=== PATIENT | male | born 1985 | race Hispanic/Latino ===

== ENCOUNTER 2021-10-21 14:48 | Emergency (ER) | payer MEDICAID ==
[2021-10-21 14:53] VITALS: BP 121/73
== END 2021-10-21 16:40 | disposition left against medical advice (07) ==
LOC: ED 14:48
DX: S69.91XA Unspecified injury of right wrist, hand and finger(s), initial encounter (principal); R20.0 Anesthesia of skin; Z53.21 Procedure and treatment not carried out due to patient leaving prior to being seen by health care provider; X58.XXXA Exposure to other specified factors, initial encounter; Y93.89 Activity, other specified; Y92.89 Other specified places as the place of occurrence of the external cause; Y99.8 Other external cause status

== ENCOUNTER 2021-11-11 18:06 | Emergency (ER) | payer MEDICAID ==
--- NOTE | 2021-11-11 21:33 | XRay Report ---
RIGHT FOOT 4 VIEWS INDICATION / CLINICAL INFORMATION: Right foot pain/injury after fall. COMPARISON: None available. FINDINGS: BONES and JOINT(S): No acute fracture or subluxation. No significant arthritis. SOFT TISSUES: No significant abnormality. ADDITIONAL FINDINGS: None. IMPRESSION: 1. No acute findings. Signer Name: Sal Anderson MD Signed: 11/11/2021 9:29 PM Workstation Name: [id number]
--- NOTE | 2021-11-12 03:28 | Emergency Department Report ---
ED Lower Extremity HPI - General Chief Complaint: Extremity Injury, Lower Stated Complaint: RIGHT FOOT PAIN Time Seen by Provider: 11/12/21 02:21 Source: patient Mode of arrival: Ambulatory Limitations: No Limitations - History of Present Illness Initial Comments: 36-year-old male presenting with right foot pain for weeks. Pain is sharp and worse with ambulating. No weakness no numbness tingling, no swelling, no history of DVTs or PE, no recent travel or sick contacts, no chest pain, no shortness of breath, no headache dizziness nausea vomiting abdominal pain, Limited information obtained patient more interested in sleeping and answer my questions. No obvious swelling or deformity. - Related Data Previous Rx's Medication Instructions Recorded Last Taken Type Ibuprofen [Motrin 800 MG tab] 800 mg PO Q8HR PRN #20 tablet 11/12/21 Unknown Rx Allergies Allergy/AdvReac Type Severity Reaction Status Date / Time No Known Allergies Allergy Unverified 10/21/21 14:50 ED Review of Systems ROS: Stated complaint: RIGHT FOOT PAIN Other details as noted in HPI Constitutional: see HPI Eyes: as per HPI ENT: as per HPI Respiratory: see HPI Cardiovascular: as per HPI Endocrine: see HPI Gastrointestinal: denies: abdominal pain, nausea, vomiting Musculoskeletal: arthralgia. denies: back pain Skin: denies: rash Neurological: denies: headache, weakness, paresthesias Psychiatric: denies: homicidal thoughts, suicidal thoughts ED Past Medical Hx - Past Medical History Additional medical history: HAND FRACTURE - Medications Home Medications: Home Medications Medication Instructions Recorded Confirmed Last Taken Type Ibuprofen [Motrin 800 MG tab] 800 mg PO Q8HR PRN #20 tablet 11/12/21 Unknown Rx ED Physical Exam - General Limitations: No Limitations General appearance: alert, in no apparent distress - Head Head exam: Present: atraumatic - Neck Neck exam: Present: normal inspection. Absent: tenderness - Respiratory Respiratory exam: Present: normal lung sounds bilaterally. Absent: respiratory distress, chest wall tenderness - Cardiovascular Cardiovascular Exam: Present: regular rate, normal rhythm - GI/Abdominal GI/Abdominal exam: Present: soft. Absent: distended, tenderness, guarding - Extremities Exam Extremities exam: Present: normal inspection, full ROM, tenderness, normal capillary refill. Absent: pedal edema, joint swelling, calf tenderness - Back Exam Back exam: Present: normal inspection, full ROM - Neurological Exam Neurological exam: Present: alert, oriented X3 - Skin Skin exam: Present: warm, dry, intact, normal color ED Course Vital Signs 11/11/21 20:45 Temperature 98.3 F Pulse Rate 76 Respiratory 15 Rate Blood Pressure 103/76 [Right] O2 Sat by Pulse 100 Oximetry ED Lower Extremity MDM - Medical Decision Making 36-year-old male presenting with right foot pain for weeks. Pain is sharp and worse with ambulating. No weakness no numbness tingling, no swelling, no history of DVTs or PE, no recent travel or sick contacts, no chest pain, no shortness of breath, no headache dizziness nausea vomiting abdominal pain, Limited information obtained patient more interested in sleeping and answer my questions. No obvious swelling or deformity. Ambulates steadily without difficulty, x-rays reassuring and negative for any acute osseous processes. had to be awoken multiple times to answer questions, I have written all of his discharge instructions so patient can read them. Audio voice dictation device used, hence the chart might contain some dictation errors, mispronunciations, wrong spelling and wrong verbiage. Critical care attestation.: If time is entered above; I have spent that time in minutes in the direct care of this critically ill patient, excluding procedure time. ED Disposition Clinical Impression: Foot pain Disposition: HOME / SELF CARE / HOMELESS Is pt being admited?: No Does the pt Need Aspirin: No Condition: Stable Prescriptions: Ibuprofen [Motrin 800 MG tab] 800 mg PO Q8HR PRN #20 tablet PRN Reason: Pain , Severe (7-10) Referrals: VERÓNICA ROBERTSON MD [Staff Physician] - 3-5 Days
[2021-11-12 05:16] VITALS: BP 127/79
== END 2021-11-12 05:17 | disposition home or self-care (01) ==
LOC: ED 18:06
DX: M79.671 Pain in right foot (principal)
CPT/HCPCS: 99282; 99283